=== PATIENT | female | born 1945 | race American Indian/Alaskan Native ===

== ENCOUNTER 2016-09-30 03:38 | Emergency (ER) | payer SELFPAY ==
--- NOTE | 2016-09-30 03:46 | C.PDOC ---
History Of Present Illness Pt presents with generalazed malaise, abdominal pain and diarrhea. Pt has taken bactrim for presumed uti, and developed diarhhea. No f/c/n/v. Decreased po intake. Has had numerous episodes of loose bms/ Time Seen by Provider: 09/30/16 03:45 History Per: Patient History/Exam Limitations: no limitations Onset/Duration Of Symptoms: Days Current Symptoms Are (Timing): Still Present Context: Other Severity: Moderate Pain Scale Rating Of: 4 Location Of Pain/Discomfort: Diffuse Radiation Of Pain To:: None Quality Of Discomfort: Dull, Cramping Associated Symptoms: Diarrhea. denies: Fever, Chills, Nausea Exacerbating Factors: None Alleviating Factors: None Last Bowel Movement: Today Recent travel outside of the [place]: No Additional History Per: Patient Abnormal Vaginal Bleeding: No Past Medical History Reviewed: Historical Data, Nursing Documentation, Vital Signs Vital Signs: Last Vital Signs Temp 98 F 09/30/16 03:49 Pulse 81 09/30/16 03:49 Resp 20 09/30/16 03:49 BP 156/94 H 09/30/16 03:49 Pulse Ox 95 09/30/16 03:49 Family History: States: No Known Family Hx Review Of Systems Constitutional: Positive for: Weakness (generalized). Negative for: Fever, Chills Eyes: Negative for: Redness ENT: Negative for: Throat Pain Cardiovascular: Negative for: Chest Pain Respiratory: Negative for: Shortness of Breath Gastrointestinal: Positive for: Nausea, Abdominal Pain, Diarrhea. Negative for : Vomiting Genitourinary: Negative for: Dysuria Musculoskeletal: Negative for: Back Pain Skin: Negative for: Rash, Lesions, Jaundice, Bruising Neurological: Negative for: Confusion Psych: Negative for: Anxiety Physical Exam - Physical Exam Appears: Non-toxic, No Acute Distress Skin: Warm, Dry Head: Normacephalic Eye(s): bilateral: Normal Inspection Oral Mucosa: Moist Neck: Trachea Midline, Supple Chest: Symmetrical Cardiovascular: Rhythm Regular Respiratory: No Rales, No Rhonchi, No Wheezing Gastrointestinal/Abdominal: Soft, Tenderness (mid epigastric), No Distention, No Guarding Back: Normal Inspection Extremity: Normal ROM Extremity: Bilateral: Atraumatic, Normal Color And Temperature Neurological/Psych: Oriented x3, Normal Speech, Normal Cognition Gait: Steady ED Course And Treatment - Laboratory Results Result Diagrams: 09/30/16 04:21 09/30/16 04:21 ECG: Interpreted By Me, Viewed By Me Pulse Ox Interpretation: Normal Progress Note: blood work, ivf, Reevaluation Time: 06:36 Reassessment Condition: Improved Medical Decision Making Medical Decision Making: Upon provider reevaluation patient is feeling better, is medically stable, and requires no further treatment in the ED at this time. Patient will be discharged home with Rx for macrobid . Counseling was provided and all questions were answered regarding diagnosis and need for follow up with the referred clinic. There is agreement to discharge plan. Return if symptoms persist or worsen. Disposition Counseled Patient/Family Regarding: Studies Performed, Diagnosis, Need For Followup - Disposition Referrals: [facility] [Outside] [facility] [Outside] Disposition: HOME/ ROUTINE Disposition Time: 03:46 Condition: FAIR Prescriptions: Nitrofurantoin Macrocrystals [Macrobid] 1 cap PO BID #14 cap Instructions: Abdominal Pain (ED), Urinary Tract Infection in Women (DC) - Clinical Impression Clinical Impression: Abdominal pain, UTI (urinary tract infection)
[2016-09-30] MEDS ORDERED: Sodium Chloride 0.9% 1,000 ML IV ONE (03:54)
[2016-09-30] MEDS ORDERED: Sodium Chloride 0.9% 1,000 ML ONE (04:10)
[2016-09-30 04:24] LABS: RED CELL DISTRIBUTION WIDTH 14.4 % (11.5-14.5)
[2016-09-30 04:26] LABS: CHLORIDE 100 mmol/L (98-107); INR 1.3; POTASSIUM 4.2 mmol/L (3.6-5.2); SODIUM 137 mmol/L (132-148)
[2016-09-30 04:28] LABS: BILIRUBIN,TOTAL 0.6 mg/dL (0.2-1.3); GFR AFRICAN-AMERICAN > 60
[2016-09-30 04:29] LABS: ALB/GLOB RATIO 1.5 (1.0-2.1); ALKALINE PHOSPHATASE 80 U/L (38-126); ALT/SGPT 19 U/L (9-52); AST/SGOT 19 U/L (14-36); BASO % 0.5 % (0.0-2.0); BLOOD UREA NITROGEN 8 mg/dL (7-17); CALCIUM 9.8 mg/dl (8.6-10.4); CARBON DIOXIDE 23 mmol/L (22-30); EOS % 0.1 % (0.0-4.0); GLUCOSE,RANDOM 141 mg/dL (65-105); HEMATOCRIT 38.4 % (34.0-47.0); LYMPH # 1.6 K/uL (1.0-4.3); LYMPH % 34.2 % (20.0-40.0); MEAN CELL VOLUME 89.7 fL (81.0-99.0); MEAN CORPUSCULAR HEMOGLOBIN 29.9 pg (27.0-31.0); MEAN CORPUSCULAR HGB CONC 33.4 g/dL (33.0-37.0); MEAN PLATELET VOLUME 8.7 fL (7.2-11.7); MONO # 0.3 K/uL (0.0-0.8); MONO % 7.3 % (0.0-10.0); TOTAL PROTEIN 8.5 g/dL (6.3-8.3); WHITE BLOOD COUNT 4.8 K/uL (4.8-10.8)
[2016-09-30 04:56] LABS: RBC URINE < 1 /hpf (0-3); URINE BILIRUBIN NEGATIVE (NEGATIVE); URINE BLOOD NEGATIVE (NEGATIVE); URINE COLOR Straw (YELLOW); URINE GLUCOSE (UA) NORMAL (Normal); URINE HYALINE CAST 0-2 /lpf (0-2); URINE KETONE NEGATIVE (NEGATIVE); URINE LEUKOCYTE ESTERASE 2+ Leu/uL (Negative); URINE PROTEIN NEGATIVE (NEGATIVE); URINE UROBILINOGEN NORMAL mg/dL (0.2-1.0); WBC URINE 13 /hpf (0-5)
[2016-09-30] MEDS ORDERED: cefTRIAXone IV 1 gm in Dextros 50 ML IVPB ONE ×2 (04:59→05:28)
[2016-09-30] MEDS ORDERED: Iodixanol 320 MG/ML 100 ML BOTTLE IV ONE (05:02)
[2016-09-30 06:48] VITALS: BP 139/94; PULSE 90; RESP 18; TEMP 98.3; O2SAT 99
--- NOTE | 2016-09-30 10:54 | CT ---
PROCEDURE: CT Abdomen and Pelvis with contrast HISTORY: Epigastric, abdominal pain. COMPARISON: 04/20/2012. TECHNIQUE: Contrast dose: 100 cc Visipaque 320 Radiation dose: Total exam DLP = 210.31 mGy-cm. This CT exam was performed using one or more of the following dose reduction techniques: Automated exposure control, adjustment of the mA and/or kV according to patient size, and/or use of iterative reconstruction technique. FINDINGS: LOWER THORAX: Unremarkable. LIVER: Unremarkable. No gross lesion or ductal dilatation. GALLBLADDER AND BILE DUCTS: Unremarkable. PANCREAS: Unremarkable. No gross lesion or ductal dilatation. SPLEEN: Unremarkable. ADRENALS: Unremarkable. No mass. KIDNEYS AND URETERS: Unremarkable. No hydronephrosis. No solid mass. VASCULATURE: Unremarkable. No aortic aneurysm. BOWEL: Unremarkable. No obstruction. No gross mural thickening. APPENDIX: No abnormalities to suggest acute appendicitis. No right lower quadrant inflammatory processes identified. PERITONEUM: Unremarkable. No free fluid. No free air. LYMPH NODES: Unremarkable. No enlarged lymph nodes. BLADDER: Unremarkable. REPRODUCTIVE: Status post hysterectomy. BONES: No acute fracture. OTHER FINDINGS: None. IMPRESSION: No acute findings related to/accounting for the clinical presentation. Concordant results (preliminary interpretation) provided by [facility]. Procedure Completed: 05:17. Preliminary ([facility]) Report: Dictated and Authenticated: 06:29. Final Interpretation: 08:31. September 29, 2016.
--- NOTE | 2016-10-06 20:49 | CARD ---
APPROVED REPORT EKG Measurement Heart [id number] <Conclusion> Sinus rhythm with occasional premature ventricular complexes Nonspecific ST and T wave abnormality Abnormal ECG
== END 2016-09-30 06:51 | disposition home or self-care (01) ==
LOC: C.ER 03:38
DX: N39.0 Urinary tract infection, site not specified (principal); R10.13 Epigastric pain
CPT/HCPCS: 74177; 80053; 81001; 83690; 85025; 85610; 85730; 93005; 96361; 96374; 96375; 99285; J0696; J2405; J7040; Q9967